=== PATIENT | female | born 1955 | race American Indian/Alaskan Native ===

== ENCOUNTER 2021-01-30 22:16 | Emergency (ER) | payer OTHER, MEDICARE ==
[2021-01-30 23:55] VITALS: BP 181/79
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
--- NOTE | 2021-01-31 01:35 | XRay Report ---
XR chest routine 2V INDICATION / CLINICAL INFORMATION: Chest wall injury. COMPARISON: None available. FINDINGS: SUPPORT DEVICES: None. HEART /PULMONARY VASCULATURE: No significant abnormality. LUNGS / PLEURA: Low lung volumes with mild bibasilar opacities. No pneumothorax. ADDITIONAL FINDINGS: No significant additional findings. IMPRESSION: Low lung volumes with mild bibasilar pulmonary opacities, likely reflecting volume loss. Otherwise, n o acute chest process. Signer Name: Bolivar Gaffney MD Signed: 01/31/2021 1:31 AM Workstation Name: [id number]
--- NOTE | 2021-01-31 01:36 | XRay Report ---
XR spine cervical 2-3V INDICATION / CLINICAL INFORMATION: neck injury. COMPARISON: None available. FINDINGS: BONES/JOINT(S): No acute fracture. No significant malalignment. There is up to moderate degenerative disc disease at C5-C6. Multilevel facet joint and uncovertebral degenerative changes. PARASPINAL SOFT TISSUES:No significant abnormality. ADDITIONAL FINDINGS: None. IMPRESSION: 1. No acute findings. Signer Name: Bolivar Gaffney MD Signed: 01/31/2021 1:32 AM Workstation Name: [id number]
--- NOTE | 2021-01-31 01:41 | XRay Report ---
. XR shoulder 2+V LT INDICATION / CLINICAL INFORMATION: Left shoulder injury. COMPARISON: None available. FINDINGS: BONES / JOINT(S): No acute fracture or subluxation. 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 SOFT TISSUES: No significant abnormality. ADDITIONAL FINDINGS: None. IMPRESSION: No acute osseous findings in the left shoulder. Signer Name: Bolivar Gaffney MD Signed: 01/31/2021 1:36 AM Workstation Name: [id number]
== END 2021-01-31 02:13 | disposition home or self-care (01) ==
LOC: ED 22:16
DX: S40.012A Contusion of left shoulder, initial encounter (principal); S10.93XA Contusion of unspecified part of neck, initial encounter; Z90.710 Acquired absence of both cervix and uterus; V49.40XA Driver injured in collision with unspecified motor vehicles in traffic accident, initial encounter; Y93.89 Activity, other specified; Y92.410 Unspecified street and highway as the place of occurrence of the external cause; Y99.8 Other external cause status
CPT/HCPCS: 71046; 72040; 99283